=== PATIENT | female | born 1960 | race Caucasian/White ===

== ENCOUNTER 2017-07-10 16:58 | Outpatient (CLI) | payer OTHER ==
[2014-02-09 14:22] VITALS: BMI 57.4
[~2017-07-10 16:58] MED LIST: CARDIZEM CD180 MG PO; COREG25 MG PO; HYDROCODONE-APA1 TAB PO; LASIX40 MG PO; MOBIC7.5 MG PO; MULTI-DAY VITAM1 TAB PO; SYNTHROID200 MC1 PO
== END 2017-07-10 23:59 | disposition home or self-care (01) ==
LOC: D.MAMMO 16:58
DX: Z12.31 Encounter for screening mammogram for malignant neoplasm of breast (principal)

== ENCOUNTER → 2017-09-16 13:00 | Outpatient (CLI) | payer BC ==
[2014-02-09 14:22] VITALS: BMI 57.4
== END ==
LOC: D.MAMMO 13:00
DX: R92.8 Other abnormal and inconclusive findings on diagnostic imaging of breast (principal)